=== PATIENT | male | born 1975 | race Two or more races ===

== ENCOUNTER 2020-08-14 10:15 | Inpatient (IN) | payer OTHER ==
[~2020-08-14] VITALS: Ht 185.4 cm; Wt 88.5 kg
[2020-08-14] MEDS ORDERED: PEPCID AC20 MG PO (15:07)
[2020-08-14] MEDS ORDERED: SIMVASTATIN10 MG PO (15:07)
[2020-08-24] MEDS ORDERED: PERCOCET 5-3251 EACH PO (14:34)
[2020-08-24] MEDS ORDERED: PRILOSEC OTC20 MG PO (14:34)
== END 2020-08-24 16:07 | disposition home or self-care (01) | DRG 331 ==
LOC: O/R 08-21 05:00 → SURG 08-21 05:00 → SURH 08-21 07:00 → SURG 08-21 15:19
PROVIDERS: ADMIT Surgery; ATTEND Surgery
PROC: 0DJD8ZZ Inspection of Lower Intestinal Tract, Via Natural or Artificial Opening Endoscopic (ICD-10-PCS; 2020-08-21)
PROC: 0DBN4ZZ Excision of Sigmoid Colon, Percutaneous Endoscopic Approach (ICD-10-PCS; principal; 2020-08-21 07:00)
DX: K57.32 Diverticulitis of large intestine without perforation or abscess without bleeding (principal)